=== PATIENT | male | born 1970 | race Two or more races ===

== ENCOUNTER 2017-04-24 22:26 | Emergency (ER) | payer SELFPAY ==
[~2017-04-24] VITALS: Ht 175.3 cm; Wt 93.9 kg
[2017-04-24 23:11] VITALS: Ht 175.3 cm; Wt 93.9 kg
== END 2017-04-25 03:48 | disposition left against medical advice (07) ==
LOC: FTE 22:26
DX: Z53.21 Procedure and treatment not carried out due to patient leaving prior to being seen by health care provider (principal)